=== PATIENT | male | born 1985 | race Caucasian/White ===

== ENCOUNTER 2022-06-30 23:38 | Emergency (ER) | payer MEDICAID ==
[~2022-06-30] VITALS: Ht 170.2 cm; Wt 117.0 kg
[2022-06-30 23:43] VITALS: BP 144/94
--- NOTE | 2022-06-30 23:49 | NUR ---
TO LOBBY FOLLOWING TRIAGE
[2022-07-01] MEDS ORDERED: BACITRACIN OINT 500 UNITS/GM PKT TP ONE ×2 (02:35→02:40)
[2022-07-01] MEDS ORDERED: BACO TP (02:41)
[2022-07-01 02:47] VITALS: BP 123/65
--- NOTE | 2022-07-01 02:47 | NUR ---
d/c with V[facility]. d/c education given. opportunity to ask questions given and answered. rx of bacitracin given.
== END 2022-07-01 02:47 | disposition home or self-care (01) ==
LOC: MED 23:38
DX: S00.91XA Abrasion of unspecified part of head, initial encounter (principal); Z72.89 Other problems related to lifestyle; W18.30XA Fall on same level, unspecified, initial encounter; Y93.89 Activity, other specified; Y92.89 Other specified places as the place of occurrence of the external cause; Y99.8 Other external cause status
CPT/HCPCS: 99282